=== PATIENT | male | born 2000 | race African-American/Black ===

== ENCOUNTER 2024-10-04 20:39 | Inpatient (IN) | payer OTHER ==
[~2024-10-04] VITALS: Ht 182.9 cm; Wt 77.3 kg
[2024-10-04 20:45] VITALS: TEMP 37; O2SAT 99
[2024-10-04 22:06] LABS: BASOPHILS % 1.4 % (0.0-2.0); DIFFERENTIAL COMMENT 0; EOSINOPHILS % 2.4 % (0.0-5.0); HEMOGLOBIN. 15.2 g/dL (14.0-18.0); LYMPHOCYTES % 54.9 % (20.0-50.0); MEAN CORPUSCULAR HEMOGLOBIN 34.6 pg (28.0-32.0); MEAN CORPUSCULAR HGB CONC 34.4 g/dL (31.0-37.0); MEAN CORPUSCULAR VOLUME 100.5 fL (80.0-94.0); MEAN PLATELET VOLUME 7.9 fl (7.4-10.4); MONOCYTES % 10.9 % (2.0-8.0); NEUTROPHILS % 30.4 % (40.0-76.0); PLATELET 276 x1000/uL (130-400); RED BLOOD CELL COUNT 4.38 mill/uL (4.7-6.1); RED CELL DISTRIBUTION WIDTH 12.3 % (11.6-14.6); WHITE BLOOD COUNT 3.5 x1000/uL (4.5-11.0)
[2024-10-04 22:14] LABS: CHLORIDE 103 mEq/L (98-107); SODIUM 138 mEq/L (136-145)
[2024-10-04 22:15] LABS: CALCIUM 9.8 mg/dL (8.7-10.4); CARBON DIOXIDE 27 mEq/L (21-32)
[2024-10-04 22:20] LABS: GLUCOSE 76 mg/dL (70-105); UREA NITROGEN BLOOD 8 mg/dL (9-23)
[2024-10-05 00:44] LABS: *AMPHETAMINES SCREEN URINE PRESUMPTIVE POSITIVE (NEGATIVE); *BARBITURATES SCREEN URINE NEGATIVE (NEGATIVE); *BENZODIAZEPINES SCREEN URINE NEGATIVE (NEGATIVE); *COCAINE SCREEN URINE NEGATIVE (NEGATIVE); METHADONE URINE SCREEN NEGATIVE (NEGATIVE); OPIATES URINE SCREEN NEGATIVE (NEGATIVE)
[2024-10-05 00:45] LABS: CANNABINOID URINE SCREEN PRESUMPTIVE POSITIVE (NEGATIVE); ECSTASY MDMA SCREEN URINE NEGATIVE (NEGATIVE); PHENCYCLIDINE URINE SCREEN NEGATIVE (NEGATIVE)
[2024-10-05] MEDS: LEVETIRACETAM 1000MG PREMIX 100 ML IV NR (00:54)
[2024-10-05] MEDS ORDERED: LORAZEPAM 2MG/ML INJ IV PRN (09:15)
[2024-10-05 10:52] VITALS: O2SAT 98
[2024-10-05 11:16] VITALS: BP 113/62; PULSE 94; RESP 16; TEMP 98.6
[2024-10-05] MEDS ORDERED: KEPP500 MT (11:38)
[2024-10-05] MEDS ORDERED: LEVETIRACETAM 500MG TABLET PO SCH (21:00)
== END 2024-10-05 12:48 | disposition home or self-care (01) | DRG 53 ==
LOC: ER 20:39 → 3WST 10-05 02:27 → EDBEDREQ 10-05 02:31 → EDBEDREQDT 10-05 02:31 → EDBEDREQTM 10-05 02:31
PROVIDERS: ADMIT Internal Medicine; ATTEND Internal Medicine
DX: G40.909 Epilepsy, unspecified, not intractable, without status epilepticus (principal); F12.90 Cannabis use, unspecified, uncomplicated; Z79.899 Other long term (current) drug therapy
CPT/HCPCS: 36415; 80048; 80305; 80320; 82962; 85025; 93005; 99285; J1953; G0480

== ENCOUNTER 2024-10-11 00:55 | Emergency (ER) | payer MEDICAID, OTHER ==
[~2024-10-11] VITALS: Ht 185.4 cm; Wt 87.0 kg
[~2024-10-11 00:55] MED LIST: KEPP500 MT
[2024-10-11 01:00] VITALS: TEMP 36.8; O2SAT 99
[2024-10-11] MEDS: LEVETIRACETAM 1000MG PREMIX 100 ML IV ONE (01:32)
[2024-10-11 05:19] VITALS: BP 113/67; PULSE 67; RESP 18; O2SAT 99
== END 2024-10-11 05:21 | disposition home or self-care (01) ==
LOC: ER 00:55
DX: R56.9 Unspecified convulsions (principal); J45.909 Unspecified asthma, uncomplicated; I10 Essential (primary) hypertension; F12.90 Cannabis use, unspecified, uncomplicated
CPT/HCPCS: 99284; 96365; J1953